=== PATIENT | female | born 2000 | race Caucasian/White ===

== ENCOUNTER 2025-03-25 20:50 | Emergency (ER) | payer SELFPAY ==
[~2025-03-25] VITALS: Ht 172.7 cm; Wt 68.3 kg
[2025-03-25] MEDS: predniSONE 20 MG TAB PO ONE (21:34)
[2025-03-25] MEDS ORDERED: PRED10TA2 PO (22:27)
[2025-03-25 22:33] VITALS: BP 110/68; TEMP 98.7; O2SAT 97
== END 2025-03-25 22:36 | disposition home or self-care (01) ==
LOC: M ED 20:50
DX: T78.3XXA Angioneurotic edema, initial encounter (principal); T78.09XA Anaphylactic reaction due to other food products, initial encounter; F90.9 Attention-deficit hyperactivity disorder, unspecified type; Z91.018 Allergy to other foods; Z79.52 Long term (current) use of systemic steroids; Z91.041 Radiographic dye allergy status; Z88.1 Allergy status to other antibiotic agents; Z88.5 Allergy status to narcotic agent; Z88.8 Allergy status to other drugs, medicaments and biological substances; Z91.040 Latex allergy status
CPT/HCPCS: 99283; J7512